=== PATIENT | male | born 1940 ===

== ENCOUNTER 2020-08-01 14:28 | Emergency (ER) | payer MEDICARE ==
--- NOTE | 2020-08-01 14:40 | CT ---
PROCEDURE INFORMATION: Exam: CT Head Without Contrast Exam date and time: 08/01/2020 2:34 PM Age: 79 years old Clinical indication: Altered mental status/memory loss; Confusion or disorientation; Additional info: CVA TECHNIQUE: Imaging protocol: Computed tomography of the head without contrast. Radiation optimization: All CT scans at this facility use at least one of these dose optimization techniques: automated exposure control; mA and/or kV adjustment per patient size (includes targeted exams where dose is matched to clinical indication); or iterative reconstruction. Other technique: STROKE PROTOCOL was implemented. COMPARISON: No relevant prior studies available. FINDINGS: Brain: Prominent sulci. Patchy hypodensity of the cerebral white matter which are nonspecific but likely secondary to microangiopathic changes. Cerebral ventricles: The ventricles are prominent secondary to diffuse volume loss/atrophy. Bones/joints: Unremarkable. No acute fracture. Paranasal sinuses: Visualized sinuses are unremarkable. No fluid levels. Mastoid air cells: Visualized mastoid air cells are well aerated. Soft tissues: Unremarkable. IMPRESSION: Chronic age related changes but no evidence of acute intracranial pathology. ASSESSMENT: ASPECTS ([place] Stroke Program Early CT Score) is 10.
--- NOTE | 2020-08-01 14:51 | EDM.PDOC ---
ED HPI GENERAL MEDICAL PROBLEM - General Stated Complaint: STROKE CODE Time Seen by Provider: 08/01/20 14:38 Source of Information: Reports: EMS History Limitations: Reports: Altered Mental Status - History of Present Illness INITIAL COMMENTS - FREE TEXT/NARRATIVE: This 79 yo male patient was brought to the ED by [facility] due to altered mentation. The patient currently lives in a basic care facility. The patient was sitting up doing a puzzle when the staff heard him call out. When the staff got to the patient, the patient was described as having "agonal breathing". EMS reports the patient has maintained his airway throughout the transport. The patient was squeezing the hands of the responders, but did not have a verbal response. The patient is currently a full code as reported by the [facility]. Upon arrival in the ED, the patient was taken directly to CT. When the patient returned to the ED from CT, the patient was maintaining his own airway. The patient would respond to verbal stimuli with grunts. The patient had no evidence of trauma. The patient has a history of hypertension, but on additional history. The patient's last known well time was about 1300 today. Onset: Today Duration: Constant Location: Reports: Other Quality: Reports: Other Severity: Severe Improves with: Reports: None Worsens with: Reports: None Context: Reports: Other Associated Symptoms: Reports: No Other Symptoms - Related Data Allergies Allergy/AdvReac Type Severity Reaction Status Date / Time No Known Allergies Allergy Verified 08/01/20 14:46 Home Meds: Home Meds Cholecalciferol (Vitamin D3) [Vitamin D3] 1,000 unit PO DAILY 08/01/20 [History] amLODIPine [Norvasc] 5 mg PO DAILY 08/01/20 [History] ED ROS GENERAL - Review of Systems Review Of Systems: Comprehensive ROS is negative, except as noted in HPI. ED EXAM, NEURO - Physical Exam Exam: See Below Exam Limited By: No Limitations General Appearance: Alert, WD/WN, Severe Distress Eye Exam: Bilateral Eye: PERRL, Other (Patient would attempt to open his eyes, but could not open his eyes) Ears: Normal External Exam, Normal Canal, Hearing Grossly Normal, Normal TMs Nose: Normal Inspection, Normal Mucosa, No Blood Throat/Mouth: Normal Inspection, Normal Lips, Normal Teeth, Normal Gums, Normal Oropharynx, No Airway Compromise Head Exam: Atraumatic, Normocephalic Neck: Normal Inspection, Supple, Non-Tender, Full Range of Motion Respiratory/Chest: No Respiratory Distress, Lungs Clear, Normal Breath Sounds, No Accessory Muscle Use, Chest Non-Tender Cardiovascular: Irregularly Irregular GI/Abdominal: Normal Bowel Sounds, Soft, Non-Tender, No Organomegaly, No Distention, No Abnormal Bruit, No Mass (Male) Exam: Deferred Rectal (Males) Exam: Deferred Neurological: Withdraws to Pain Back Exam: Normal Inspection, Full Range of Motion Extremities: Normal Inspection, Non-Tender, No Pedal Edema, Normal Capillary Refill Skin Exam: Warm, Dry, Intact, Normal Color, No Rash #1 Interpretation EKG Date: 08/01/20 Time: 14:43 Rhythm: A-Fib [place]: Normal P-Wave: Absent QRS: Normal ST-T: Normal QT: Normal Course - Vital Signs Last Recorded V/S: Last Vital Signs Temp 36.6 C 08/01/20 14:49 Pulse 85 08/01/20 14:49 Resp 20 08/01/20 14:49 BP 113/71 08/01/20 14:49 Pulse Ox 97 08/01/20 14:49 - Orders/Labs/Meds Orders: Active Orders 24 hr Category Date Time Status Blood Glucose Check, Bedside [RC] ONETIME Care 08/01/20 14:04 Active EKG Documentation Completion [RC] STAT Care 08/01/20 14:03 Active CULTURE BLOOD [BC] Stat Lab 08/01/20 14:41 Received Bender [CORONAVIRUS COVID-19 JERMAIN] [MOLEC] Urgent Lab 08/01/20 16:05 Ordered REFLEX LACTIC ACID YES OR NO [CHEM] Routine Lab 08/01/20 15:19 Received Sodium Chloride 0.9% [Normal Saline] 1,000 ml Med 08/01/20 16:22 Ordered IV .BOLUS Medication Orders Sodium Chloride (Normal Saline) 1,000 mls @ 500 mls/hr IV .BOLUS ONE Stop: 08/01/20 18:21 Labs: Laboratory Tests 08/01/20 08/01/20 08/01/20 Range/Units 14:31 14:41 14:41 WBC 9.0 (5.0-10.0) 10^3/uL RBC 4.78 (4.6-6.2) 10^6/uL Hgb 14.9 (14.0-18.0) g/dL Hct 42.9 (40.0-54.0) % MCV 89.7 (80-100) fL MCH 31.2 (27.0-34.0) pg MCHC 34.7 (33.0-35.0) g/dL Plt Count 208 (150-450) 10^3/uL Neut % (Auto) 61.9 (42.2-75.2) % Lymph % (Auto) 28.9 (20.5-50.1) % [place] % (Auto) 6.5 (2-8) % Eos % (Auto) 2.4 (1.0-3.0) % Baso % (Auto) 0.3 (0.0-1.0) % PT (9.0-12.0) SEC INR (0.9-1.2) Sodium 142 (136-145) mmol/L Potassium 5.4 H (3.5-5.1) mmol/L Chloride 103 (98-107) mmol/L Carbon Dioxide 23 (21-32) mmol/L Anion Gap 21.4 H (7-13) mEq/L BUN 28 H (7-18) mg/dL Creatinine 1.41 H (0.70-1.30) mg/dL Est Cr Clr Drug Dosing 43.16 mL/min Estimated GFR (MDRD) 48 BUN/Creatinine Ratio 19.9 (No establ ref range) Glucose 143 H (74-99) mg/dL POC Glucose 157 H (83-110) mg/dl Lactic Acid (0.4-2.0) mmol/L Calcium 8.8 (8.5-10.1) mg/dL Total Bilirubin 0.5 (0.2-1.0) mg/dL AST 47 H (15-37) U/L ALT 37 (16-63) U/L Alkaline Phosphatase 74 (46-116) U/L Troponin I 0.109 H* (0.000-0.056) ng/mL Total Protein 6.8 (6.4-8.2) g/dL Albumin 3.4 (3.4-5.0) g/dL Globulin 3.4 Albumin/Globulin Ratio 1.0 08/01/20 08/01/20 Range/Units 14:41 14:41 WBC (5.0-10.0) 10^3/uL RBC (4.6-6.2) 10^6/uL Hgb (14.0-18.0) g/dL Hct (40.0-54.0) % MCV (80-100) fL MCH (27.0-34.0) pg MCHC (33.0-35.0) g/dL Plt Count (150-450) 10^3/uL Neut % (Auto) (42.2-75.2) % Lymph % (Auto) (20.5-50.1) % [place] % (Auto) (2-8) % Eos % (Auto) (1.0-3.0) % Baso % (Auto) (0.0-1.0) % PT 10.6 (9.0-12.0) SEC INR 1.1 (0.9-1.2) Sodium (136-145) mmol/L Potassium (3.5-5.1) mmol/L Chloride (98-107) mmol/L Carbon Dioxide (21-32) mmol/L Anion Gap (7-13) mEq/L BUN (7-18) mg/dL Creatinine (0.70-1.30) mg/dL Est Cr Clr Drug Dosing mL/min Estimated GFR (MDRD) BUN/Creatinine Ratio (No establ ref range) Glucose (74-99) mg/dL POC Glucose (83-110) mg/dl Lactic Acid 5.6 H* (0.4-2.0) mmol/L Calcium (8.5-10.1) mg/dL Total Bilirubin (0.2-1.0) mg/dL AST (15-37) U/L ALT (16-63) U/L Alkaline Phosphatase (46-116) U/L Troponin I (0.000-0.056) ng/mL Total Protein (6.4-8.2) g/dL Albumin (3.4-5.0) g/dL Globulin Albumin/Globulin Ratio Meds: Medications Generic Name Dose Route Start Last Admin Trade Name Freq PRN Reason Stop Dose Admin Sodium Chloride 1,000 mls @ 500 mls/hr 08/01/20 16:22 Normal Saline IV 08/01/20 18:21 .BOLUS ONE Departure - Departure Time of Disposition: 16:26 Disposition: DC/Tfer to Acute Hospital 02 Condition: Fair Clinical Impression: Elevated troponin I level, New onset a-fib - Discharge Information *PRESCRIPTION DRUG MONITORING PROGRAM REVIEWED*: Not Applicable *COPY OF PRESCRIPTION DRUG MONITORING REPORT IN PATIENT JESSICA: Not Applicable Forms: Interfacility Transfer EMTALA Care Plan Goals: Discussed the patient's history, examination, CT, Lab and EKG results with Dr. Rivas. Dr. Rivas accepted the patient for continued evaluation and further management as an inpatient at [facility] in [place]. The patient will be transported by [facility]. Sepsis Event Note (ED) - Focused Exam Vital Signs: Vital Signs Temp Pulse Resp BP Pulse Ox 08/01/20 14:49 36.6 C 85 20 113/71 97 - My Orders Last 24 Hours: My Active Orders 08/01/20 14:03 EKG Documentation Completion [RC] STAT 08/01/20 14:04 Blood Glucose Check, Bedside [RC] ONETIME 08/01/20 14:41 CULTURE BLOOD [BC] Stat 08/01/20 15:19 REFLEX LACTIC ACID YES OR NO [CHEM] Routine 08/01/20 16:05 Bender [CORONAVIRUS COVID-19 JERMAIN] [MOLEC] Urgent 08/01/20 16:22 Sodium Chloride 0.9% [Normal Saline] 1,000 ml IV .BOLUS - Assessment/Plan Last 24 Hours: My Active Orders 08/01/20 14:03 EKG Documentation Completion [RC] STAT 08/01/20 14:04 Blood Glucose Check, Bedside [RC] ONETIME 08/01/20 14:41 CULTURE BLOOD [BC] Stat 08/01/20 15:19 REFLEX LACTIC ACID YES OR NO [CHEM] Routine 08/01/20 16:05 Bender [CORONAVIRUS COVID-19 JERMAIN] [MOLEC] Urgent 08/01/20 16:22 Sodium Chloride 0.9% [Normal Saline] 1,000 ml IV .BOLUS
[2020-08-01 15:28] LABS: ANION GAP 21.4 mEq/L (7-13)
[2020-08-01] MEDS ORDERED: Sodium Chloride 0.9% 1,000 ML IV ONE (16:22)
== END 2020-08-01 16:57 ==
LOC: DL.ED 14:28
DX: I48.91 Unspecified atrial fibrillation (principal); R77.8 Other specified abnormalities of plasma proteins; I10 Essential (primary) hypertension
CPT/HCPCS: 36415; 70450; 80053; 81001; 82962; 83605; 84484; 85025; 85610; 87040; 93005; 93010; 99284; 99285; J7030; U0002

== ENCOUNTER 2021-01-04 09:45 | Observation (INO) | payer MEDICARE ==
[~2021-01-04 09:45] MED LIST: Sodium Chloride 0.9% 500 ML IV SCH; levETIRAcetam in NaCl (iso-os) 1,500 MG in Premix Bag 1 BAG IV ONE
--- NOTE | 2021-01-04 10:13 | CT ---
PROCEDURE INFORMATION: Exam: CT Head Without Contrast Exam date and time: 01/04/2021 9:50 AM Age: 80 years old Clinical indication: Other: Suspected seizure, fall w/head injury TECHNIQUE: Imaging protocol: Computed tomography of the head without contrast. Radiation optimization: All CT scans at this facility use at least one of these dose optimization techniques: automated exposure control; mA and/or kV adjustment per patient size (includes targeted exams where dose is matched to clinical indication); or iterative reconstruction. COMPARISON: CT Head wo Cont 08/01/2020 2:34 PM FINDINGS: Brain: There is no acute intracranial hemorrhage. There is lucency in the cerebral white matter, likely microvascular disease although non-specific. [place] white differentiation is intact. There are no extra-axial fluid collections. No evidence of mass. There is no mass effect or midline shift. Cerebral ventricles: The ventricles and sulci are enlarged, consistent with volume loss / atrophy. No hydrocephalus. Paranasal sinuses: Visualized sinuses are unremarkable. No fluid levels. Mastoid air cells: No significant mastoid effusion. Vasculature: There is vascular calcification. Bones/joints: No acute fracture. Soft tissues: Unremarkable as visualized. 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 IMPRESSION: 1. No evidence of acute intracranial abnormality. No evidence of acute infarction, hemorrhage, or mass. 2. Atrophy and microvascular disease.
--- NOTE | 2021-01-04 10:17 | CT ---
PROCEDURE INFORMATION: Exam: CT Cervical Spine Without Contrast Exam date and time: 01/04/2021 9:50 AM Age: 80 years old Clinical indication: Other: Suspected seizure, fall w/head injury TECHNIQUE: Imaging protocol: Computed tomography images of the cervical spine without contrast. Radiation optimization: All CT scans at this facility use at least one of these dose optimization techniques: automated exposure control; mA and/or kV adjustment per patient size (includes targeted exams where dose is matched to clinical indication); or iterative reconstruction. COMPARISON: CT Head wo Cont 08/01/2020 2:34 PM FINDINGS: Bones/joints: Loss of cervical lordosis may be positional or associated with muscular spasm. Vertebral body heights are maintained. There is no fracture or dislocation. Facet joints appear well aligned. There is mild grade 1 anterolisthesis at C3-C4, C4-C5, C6-C7, and C7-T1. Bones are demineralized. Discs/Spinal canal/Neural foramina: There are degenerative changes with neural foraminal narrowing. Spinal canal appears adequate diameter. Prevertebral Space: Prevertebral soft tissues appear normal. Lungs: Mild scarring in pulmonary apices. Soft tissues: Unremarkable. IMPRESSION: 1. Loss of cervical lordosis. No evidence of fracture or dislocation. 2. Other findings as described.
--- NOTE | 2021-01-04 10:30 | EDM.PDOC ---
"ED HPI GENERAL MEDICAL PROBLEM - General Source of Information: Reports: Patient, EMS History Limitations: Reports: Altered Mental Status - History of Present Illness Onset: Today, Sudden Duration: Minutes: Location: Reports: Generalized <Song Narvaez - Last Filed: 01/04/21 13:49> - General Source of Information: Reports: Patient, EMS, Halfway Records, Old Records, RN, RN Notes Reviewed History Limitations: Reports: Altered Mental Status <Jose Angel Branham - Last Filed: 01/04/21 13:53> - General Chief Complaint: Neurological Problem Stated Complaint: AMBULANCE Time Seen by Provider: 01/04/21 09:50 - History of Present Illness INITIAL COMMENTS - FREE TEXT/NARRATIVE: 80 y/o M resident of a [facility]pc was found face down on the floor next to his bed seizing this morning. Staff states they check on pt at about 730 this am and invited him to breakfast, when pt didn't show around 8 am staff went back to check on him and found him seizing. Staff reports the seizure stopped a few seconds after they arrived. They rolled pt on his back and he had labored breathing and was blue around the lips. EMS was then called and brought pt to ER. Pt hx of seizures and has been out of his Keppra for three days while [facility]. Pt was postictal after seizure and has remained confused during transport per EMS. (Song Narvaez) - Related Data Allergies Allergy/AdvReac Type Severity Reaction Status Date / Time No Known Allergies Allergy Verified 08/01/20 14:46 Home Meds: Home Meds Cholecalciferol (Vitamin D3) [Vitamin D3] 1,000 unit PO DAILY 08/01/20 [History] amLODIPine [Norvasc] 10 mg PO DAILY 08/01/20 [History] Latanoprost [Xalatan 0.005% Ophth Soln] 1 drop .ROUTE ASDIRECTED 01/04/21 [History] Tamsulosin [Tamsulosin 24 Hr] 0.4 mg PO ASDIRECTED 01/04/21 [History] levETIRAcetam [Keppra] 500 mg PO BID 01/04/21 [History] Past Medical History HEENT History: Reports: None Cardiovascular History: Reports: Hypertension Respiratory History: Reports: None Gastrointestinal History: Reports: None Genitourinary History: Reports: None Musculoskeletal History: Reports: None Neurological History: Reports: None Psychiatric History: Reports: None Endocrine/Metabolic History: Reports: None Hematologic History: Reports: None Immunologic History: Reports: None Oncologic (Cancer) History: Reports: None Dermatologic History: Reports: None - Infectious Disease History Infectious Disease History: Reports: None - Past Surgical History Head Surgeries/Procedures: Reports: None <Sogn Narvaez - Last Filed: 01/04/21 13:49> Cardiovascular History: Reports: Afib, Hypertension Neurological History: Reports: Seizure <YonasJose Angel Merritt - Last Filed: 01/04/21 13:53> Social & Family History - Family History Family Medical History: Unobtainable - Caffeine Use Caffeine Use: Reports: None <Song Narvaez - Last Filed: 01/04/21 13:49> - Family History Family Medical History: Unobtainable - Living Situation & Occupation Living situation: Reports: Extended Care Facility Occupation: Retired <Jose Angel Branham - Last Filed: 01/04/21 13:53> ED ROS GENERAL - Review of Systems Review Of Systems: Unable To Obtain Reason Not Obtained: Pt confused after seizure <[place] - Last Filed: 01/04/21 13:49> - Review of Systems Review Of Systems: Comprehensive ROS is negative, except as noted in HPI. <Jose Angel Branham - Last Filed: 01/04/21 13:53> - Physical Exam Exam: See Below Exam Limited By: No Limitations General Appearance: Lethargic Eye Exam: Bilateral Eye: PERRL (Perrl with a conjugate gaze but sluggish) Throat/Mouth: Normal Oropharynx, Normal Voice, No Airway Compromise, Other (contusion to the anterior R tongue) Head Exam: Atraumatic, Normocephalic Neck: Supple Respiratory/Chest: No Respiratory Distress, Lungs Clear, Normal Breath Sounds, No Accessory Muscle Use, Chest Non-Tender Cardiovascular: Irregularly Irregular GI/Abdominal: Soft, Non-Tender (Male) Exam: Deferred Rectal (Males) Exam: Deferred Neuro Exam (Abbreviated): Confused Extremities: Normal Inspection Skin Exam: Warm, Dry, Intact <Song Narvaez Yeny Last Filed: 01/04/21 13:49> - Physical Exam Exam: See Below <Jose Angel Branham - Last Filed: 01/04/21 13:53> #1 Interpretation EKG Date: 01/04/21 Time: 10:09 Rhythm: A-Fib Rate (Beats/Min): 110 [place]: Normal P-Wave: Absent QRS: Normal ST-T: Normal QT: Normal Comparison: No Change <Jose Angel Branham - Last Filed: 01/04/21 13:53> Course <Jose Angel Branham - Last Filed: 01/04/21 13:53> - Vital Signs Last Recorded V/S: Last Vital Signs Temp 97.7 F 01/04/21 09:51 Pulse 102 H 01/04/21 09:51 Resp 19 01/04/21 09:51 BP 99/84 01/04/21 09:51 Pulse Ox 90 L 01/04/21 09:51 - Orders/Labs/Meds Orders: Active Orders 24 hr Category Date Time Status Blood Glucose Check, Bedside [RC] ONETIME Care 01/04/21 09:41 Active LEVETIRACETAM, S [REF] Routine Lab 01/04/21 10:10 Received Sodium Chloride 0.9% [Normal Saline] 500 ml Med 01/04/21 09:45 Active IV .BOLUS Medication Orders Sodium Chloride (Normal Saline) 500 mls @ 999 mls/hr IV .BOLUS RENETTA Last Admin: 01/04/21 10:19 Dose: 999 mls/hr Documented by: YARED Labs: Laboratory Tests 01/04/21 01/04/21 01/04/21 Range/Units 09:46 10:10 10:10 WBC 16.5 H (5.0-10.0) 10^3/uL RBC 5.07 (4.6-6.2) 10^6/uL Hgb 15.1 (14.0-18.0) g/dL Hct 43.6 (40.0-54.0) % MCV 86.0 D (80-100) fL MCH 29.8 (27.0-34.0) pg MCHC 34.6 (33.0-35.0) g/dL Plt Count 214 (150-450) 10^3/uL Neut % (Auto) 89.1 H (42.2-75.2) % Lymph % (Auto) 5.6 L (20.5-50.1) % [place] % (Auto) 5.1 (2-8) % Eos % (Auto) 0.1 L (1.0-3.0) % Baso % (Auto) 0.1 (0.0-1.0) % Sodium 140 (136-145) mmol/L Potassium 4.3 (3.5-5.1) mmol/L Chloride 104 (98-107) mmol/L Carbon Dioxide 19 L (21-32) mmol/L Anion Gap 21.3 H (7-13) mEq/L BUN 21 H (7-18) mg/dL Creatinine 1.80 H (0.70-1.30) mg/dL Est Cr Clr Drug Dosing 36.55 mL/min Estimated GFR (MDRD) 36 BUN/Creatinine Ratio 11.7 (No establ ref range) Glucose 153 H (70-99) mg/dL POC Glucose 158 H (70-99) mg/dL Calcium 8.6 (8.5-10.1) mg/dL Total Bilirubin 0.4 (0.2-1.0) mg/dL AST 32 (15-37) U/L ALT 47 (16-63) U/L Alkaline Phosphatase 86 (46-116) U/L Lactate Dehydrogenase 215 (85-227) U/L Creatine Kinase 567 H (39-308) U/L Troponin I High Sens 9 (<=76) pg/mL Total Protein 6.6 (6.4-8.2) g/dL Albumin 3.4 (3.4-5.0) g/dL Globulin 3.2 Albumin/Globulin Ratio 1.1 Urine Color (YELLOW) Urine Appearance (CLEAR) Urine pH (5.0-9.0) Ur Specific [place] (1.005-1.030) Urine Protein (NEGATIVE) Urine Glucose (UA) (NEGATIVE) Urine Ketones (NEGATIVE) Urine Occult Blood (NEGATIVE) Urine Nitrite (NEGATIVE) Urine Bilirubin (NEGATIVE) Urine Urobilinogen (0.2-1.0) mg/dL Ur Leukocyte Esterase (NEGATIVE) Urine RBC (0-5) /HPF Urine WBC (0-5/HPF) /HPF Ur Epithelial Cells (NOT SEEN) /HPF Amorphous Sediment (NOT SEEN) /HPF Urine Bacteria (0-FEW/HPF) /HPF Urine Opiates Screen (NEGATIVE) Ur Oxycodone Screen (NEGATIVE) Urine Methadone Screen (NEGATIVE) Ur Barbiturates Screen (NEGATIVE) U Tricyclic Antidepress (NEGATIVE) Ur Phencyclidine Scrn (NEGATIVE) Ur Amphetamine Screen (NEGATIVE) U Methamphetamines Scrn (NEGATIVE) Urine MDMA Screen (NEGATIVE) U Benzodiazepines Scrn (NEGATIVE) Urine Cocaine Screen (NEGATIVE) U Marijuana (THC) Screen (NEGATIVE) Ethyl Alcohol < 3 (0) mg/dL SARS CoV-2 RNA Rapid JERMAIN (NEGATIVE) 01/04/21 01/04/21 01/04/21 Range/Units 11:57 11:59 15:59 WBC (5.0-10.0) 10^3/uL RBC (4.6-6.2) 10^6/uL Hgb (14.0-18.0) g/dL Hct (40.0-54.0) % MCV (80-100) fL MCH (27.0-34.0) pg MCHC (33.0-35.0) g/dL Plt Count (150-450) 10^3/uL Neut % (Auto) (42.2-75.2) % Lymph % (Auto) (20.5-50.1) % [place] % (Auto) (2-8) % Eos % (Auto) (1.0-3.0) % Baso % (Auto) (0.0-1.0) % Sodium (136-145) mmol/L Potassium (3.5-5.1) mmol/L Chloride (98-107) mmol/L Carbon Dioxide (21-32) mmol/L Anion Gap (7-13) mEq/L BUN (7-18) mg/dL Creatinine (0.70-1.30) mg/dL Est Cr Clr Drug Dosing mL/min Estimated GFR (MDRD) BUN/Creatinine Ratio (No establ ref range) Glucose (70-99) mg/dL POC Glucose (70-99) mg/dL Calcium (8.5-10.1) mg/dL Total Bilirubin (0.2-1.0) mg/dL AST (15-37) U/L ALT (16-63) U/L Alkaline Phosphatase (46-116) U/L Lactate Dehydrogenase (85-227) U/L Creatine Kinase (39-308) U/L Troponin I High Sens (<=76) pg/mL Total Protein (6.4-8.2) g/dL Albumin (3.4-5.0) g/dL Globulin Albumin/Globulin Ratio Urine Color Dark yellow (YELLOW) Urine Appearance Clear (CLEAR) Urine pH 5.5 (5.0-9.0) Ur Specific [place] >= 1.030 (1.005-1.030) Urine Protein 100 H (NEGATIVE) Urine Glucose (UA) Negative (NEGATIVE) Urine Ketones Negative (NEGATIVE) Urine Occult Blood Large H (NEGATIVE) Urine Nitrite Negative (NEGATIVE) Urine Bilirubin Negative (NEGATIVE) Urine Urobilinogen 0.2 (0.2-1.0) mg/dL Ur Leukocyte Esterase Negative (NEGATIVE) Urine RBC 10-20 H (0-5) /HPF Urine WBC Not seen (0-5/HPF) /HPF Ur Epithelial Cells Rare (NOT SEEN) /HPF Amorphous Sediment Few (NOT SEEN) /HPF Urine Bacteria Rare (0-FEW/HPF) /HPF Urine Opiates Screen Negative (NEGATIVE) Ur Oxycodone Screen Negative (NEGATIVE) Urine Methadone Screen Negative (NEGATIVE) Ur Barbiturates Screen Negative (NEGATIVE) U Tricyclic Antidepress Negative (NEGATIVE) Ur Phencyclidine Scrn Negative (NEGATIVE) Ur Amphetamine Screen Negative (NEGATIVE) U Methamphetamines Scrn Negative (NEGATIVE) Urine MDMA Screen Negative (NEGATIVE) U Benzodiazepines Scrn Negative (NEGATIVE) Urine Cocaine Screen Negative (NEGATIVE) U Marijuana (THC) Screen Negative (NEGATIVE) Ethyl Alcohol (0) mg/dL SARS CoV-2 RNA Rapid JERMAIN Negative (NEGATIVE) Meds: Medications Generic Name Dose Route Start Last Admin Trade Name Freq PRN Reason Stop Dose Admin Sodium Chloride 500 mls @ 999 mls/hr 01/04/21 09:45 01/04/21 10:19 Normal Saline IV 999 mls/hr .BOLUS RENETTA Administration Discontinued Medications Generic Name Dose Route Start Last Admin Trade Name Freq PRN Reason Stop Dose Admin Levetiracetam 1,500 mg/ Premix 300 mls @ 1,200 mls/hr 01/04/21 09:45 01/04/21 10:18 IV 01/04/21 09:46 1,200 mls/hr ONETIME ONE Administration - Radiology Interpretation Free Text/Narrative:: [facility] Final Radiology Report Call: [phone] assistance Online chat: [email or web address] Name: IVONNE DAVIS Age: 80Years M Date: 01/04/2021 SSN: -- : [id number] Study: CT HEAD WO CONT Requesting Physician: JOSE ANGEL BRANHAM Images: [id number] Addl Studies: Provided Clinical History: Suspected seizure, fall w/head injury Contrast: Without Contrast Medium: Contrast Amount: Contrast Method: Page 1 of 2 PROCEDURE INFORMATION: Exam: CT Head Without Contrast Exam date and time: 01/04/2021 9:50 AM Age: 80 years old Clinical indication: Other: Suspected seizure, fall w/head injury TECHNIQUE: Imaging protocol: Computed tomography of the head without contrast. Radiation optimization: All CT scans at this facility use at least one of these dose optimization techniques: automated exposure control; mA and/or kV adjustment per patient size (includes targeted exams where dose is matched to clinical indication); or iterative reconstruction. COMPARISON: CT Head wo Cont 08/01/2020 2:34 PM FINDINGS: Brain: There is no acute intracranial hemorrhage. There is lucency in the cerebral white matter, likely microvascular disease although non-specific. Dom[place] white differentiation is intact. There are no extraaxial fluid collections. No evidence of mass. There is no mass effect or midline shift. Cerebral ventricles: The ventricles and sulci are enlarged, consistent with vol ume loss / atrophy. No hydrocephalus. Paranasal sinuses: Visualized sinuses are unremarkable. No fluid levels. Mastoid air cells: No significant mastoid effusion. Vasculature: There is vascular calcification. Bones/joints: No acute fracture. Soft tissues: Unremarkable as visualized. 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 IMPRESSION: IVONNE DAVIS | Final Radiology Report CONFIDENTIALITY STATEMENT This report is intended only for use by the referring physician, and only in accordance with law. If you received this in error, call [phone]. Page 2 of 2 1. No evidence of acute intracranial abnormality. No evidence of acute infarction, hemorrhage, or mass. 2. Atrophy and microvascular disease. Thank you for allowing us to participate in the care of your patient. Dictated and Authenticated by: Fina Snyder MD 01/04/2021 10:13 AM Central Time ([place] & [place]) [facility] [place] [facility] Final Radiology Report with Addendum Call: [phone] assistance Online chat: [email or web address] Name: IVONNE DAVIS Age: 80Years M Date: 01/04/2021 SSN: -- : [id number] Study: CT CERVICAL SPINE WO CONT Requesting Physician: JOSE ANGEL BRANHAM Images: [id number] Addl Studies: Provided Clinical History: Suspected seizure, fall w/head injury Contrast: Without Contrast Medium: Contrast Amount: Contrast Method: Page 1 of 2 Addendum created by Fina Snyder MD on 01/04/2021 10:18 AM Central Time ([place] & [place]): There is mild superior concavity and anterior wedging of T3 greater than T7 without acute fracture line and these appear chronic. Initial Report created on 01/04/2021 10:17 AM Central Time ([place] & [place]): PROCEDURE INFORMATION: Exam: CT Cervical Spine Without Contrast Exam date and time: 01/04/2021 9:50 AM Age: 80 years old Clinical indication: Other: Suspected seizure, fall w/head injury TECHNIQUE: Imaging protocol: Computed tomography images of the cervical spine without contrast. Radiation optimization: All CT scans at this facility use at least one of these dose optimization techniques: automated exposure control; mA and/or kV adjustment per patient size (includes targeted exams where dose is matched to clinical indication); or iterative reconstruction. COMPARISON: CT Head wo Cont 08/01/2020 2:34 PM FINDINGS: Bones/joints: Loss of cervical lordosis may be positional or associated with muscular spasm. Vertebral body heights are maintained. There is no fracture or dislocation. Facet joints appear well aligned. There is mild grade 1 anterolisthesis at C3-C4, C4-C5, C6-C7, and C7- T1. Bones are demineralized. Discs/Spinal canal/Neural foramina: There are degenerative changes with neural foraminal narrowing. Spinal canal appears adequate diameter. Prevertebral Space: Prevertebral soft tissues appear normal. Lungs: Mild scarring in pulmonary apices. IVONNE DAVIS | Final Radiology Report CONFIDENTIALITY STATEMENT This report is intended only for use by the referring physician, and only in accordance with law. If you received this in error, call [phone]. Page 2 of 2 Soft tissues: Unremarkable. IMPRESSION: 1. Loss of cervical lordosis. No evidence of fracture or dislocation. 2. Other findings as described. Thank you for allowing us to participate in the care of your patient. Dictated and Authenticated by: Fina Snyder MD 01/04/2021 10:17 AM Central Time ([place] & [place]) (Jose Angel Branham) - Re-Assessments/Exams Free Text/Narrative Re-Assessment/Exam: 01/04/21 13:51 Pt has not completely returned to baseline following prolonged postictal phase, with no other source of alt. mental status identified. Plan to admit pt to observation to Dr. Ball. (Jose Angel Branham) Departure - Departure Time of Disposition: 13:48 (admitted to Dr. Ball) Condition: Fair <Song Narvaez - Last Filed: 01/04/21 13:49> - Discharge Information *PRESCRIPTION DRUG MONITORING PROGRAM REVIEWED*: Not Applicable *COPY OF PRESCRIPTION DRUG MONITORING REPORT IN PATIENT JESSICA: Not Applicable <Jose Angel Branham - Last Filed: 01/04/21 13:53> - Departure Disposition: Refer to Observation Clinical Impression: Seizure Altered mental status Qualifiers: Altered mental status type: disorientation Qualified Code(s): R41.0 - Disorientation, unspecified - Discharge Information Forms: ED Department Discharge Sepsis Event Note (ED) - Focused Exam Vital Signs: Vital Signs Temp Pulse Resp BP Pulse Ox 01/04/21 09:51 97.7 F 102 H 19 99/84 90 L - My Orders Last 24 Hours: My Active Orders 01/04/21 09:41 Blood Glucose Check, Bedside [RC] ONETIME 01/04/21 09:45 Sodium Chloride 0.9% [Normal Saline] 500 ml IV .BOLUS 01/04/21 10:10 LEVETIRACETAM, S [REF] Routine - Assessment/Plan Last 24 Hours: My Active Orders 01/04/21 09:41 Blood Glucose Check, Bedside [RC] ONETIME 01/04/21 09:45 Sodium Chloride 0.9% [Normal Saline] 500 ml IV .BOLUS 01/04/21 10:10 LEVETIRACETAM, S [REF] Routine"
[2021-01-04 10:36] LABS: ANION GAP 21.3 mEq/L (7-13); CHLORIDE,CL 104 mmol/L (98-107); SODIUM,NA 140 mmol/L (136-145)
[2021-01-04 12:37] LABS: AMPHETAMINES,URINE NEGATIVE (NEGATIVE); BARBITURATES,URINE NEGATIVE (NEGATIVE); BENZODIAZEPINE,URINE NEGATIVE (NEGATIVE); MDMA (ECSTASY), URINE NEGATIVE (NEGATIVE); METHADONE,URINE NEGATIVE (NEGATIVE); METHAMPHETAMINES,URINE NEGATIVE (NEGATIVE); OPIATES,URINE NEGATIVE (NEGATIVE); OXYCODONE,URINE NEGATIVE (NEGATIVE); PHENCYCLIDINE,URINE NEGATIVE (NEGATIVE); TCA,URINE NEGATIVE (NEGATIVE)
[2021-01-04] MEDS ORDERED: Temazepam 15 MG Cap PO PRN (16:04)
[2021-01-04] MEDS ORDERED: Acetaminophen 325 MG Tab PO PRN (16:04)
[2021-01-04] MEDS ORDERED: Ondansetron 4 MG Tab.DIS PO PRN (16:04)
[2021-01-04] MEDS ORDERED: Sodium Chloride 0.9% 10 ML Syringe FLUSH PRN (16:04)
[2021-01-04] MEDS ORDERED: Docusate Sodium 100 MG Cap PO PRN (16:04)
--- NOTE | 2021-01-04 16:07 | PCM.HP ---
H&P History of Present Illness - General Date of Service: 01/04/21 Admit Problem/Dx: Admission Diagnosis/Problem Admission Diagnosis/Problem Seizure Source of Information: Patient History Limitations: Reports: Altered Mental Status - History of Present Illness Initial Comments - Free Text/Narative: pt can not recall how he ended up in the hospital per er report: 80 y/o M resident of a correction was found face down on the floor next to his bed seizing this morning. Staff states they check on pt at about 730 this am and invited him to breakfast, when pt didn't show around 8 am staff went back to check on him and found him seizing. Staff reports the seizure stopped a few seconds after they arrived. They rolled pt on his back and he had labored breathing and was blue around the lips. EMS was then called and brought pt to ER. Pt hx of seizures and has been out of his Keppra for three days while [facility]. Pt was postictal after seizure and has remained confused during transport per EMS. the patient denies headache, no associated shortness of breath. He is alert and knows where he is and where he lives that but cannot recall how he ended up in the hospital. - Related Data Allergies/Adverse Reactions: Allergies Allergy/AdvReac Type Severity Reaction Status Date / Time No Known Allergies Allergy Verified 01/04/21 15:44 Home Medications: Home Meds Cholecalciferol (Vitamin D3) [Vitamin D3] 1,000 unit PO DAILY 08/01/20 [History] amLODIPine [Norvasc] 10 mg PO DAILY 08/01/20 [History] Fluticasone Propionate [Flonase] 1 spray NASBOTH DAILY 01/04/21 [History] Latanoprost [Xalatan 0.005% Ophth Soln] 1 drop .ROUTE ASDIRECTED 01/04/21 [History] Tamsulosin [Tamsulosin 24 Hr] 0.4 mg PO ASDIRECTED 01/04/21 [History] levETIRAcetam [Keppra] 500 mg PO BID 01/04/21 [History] Past Medical History HEENT History: Reports: None Cardiovascular History: Reports: Afib, Hypertension Respiratory History: Reports: None Gastrointestinal History: Reports: None Genitourinary History: Reports: None Musculoskeletal History: Reports: None Neurological History: Reports: Seizure Psychiatric History: Reports: None Endocrine/Metabolic History: Reports: None Hematologic History: Reports: None Immunologic History: Reports: None Oncologic (Cancer) History: Reports: None Dermatologic History: Reports: None - Infectious Disease History Infectious Disease History: Reports: None - Past Surgical History Head Surgeries/Procedures: Reports: None Social & Family History - Family History Family Medical History: Unobtainable - Tobacco Use Tobacco Use Status *Q: Unknown Ever Used Tobacco - Caffeine Use Caffeine Use: Reports: Coffee - Living Situation & Occupation Living situation: Reports: Extended Care Facility Occupation: Retired H&P Review of Systems - Review of Systems: Review Of Systems: See Below General: Denies: Fever Pulmonary: Denies: Shortness of Breath Cardiovascular: Denies: Chest Pain, Edema Psychiatric: Reports: Confusion (earlier - improving ) Exam - Exam Exam: See Below - Vital Signs Vital Signs: Last Vital Signs Temp 96 F L 01/04/21 14:45 Pulse 108 H 01/04/21 14:50 Resp 22 H 01/04/21 14:50 BP 119/79 01/04/21 14:50 Pulse Ox 96 01/04/21 14:50 Weight: 177 lb - Exam General: Alert, Oriented Neck: Supple Lungs: Clear to Auscultation, Normal Respiratory Effort Cardiovascular: Irregular Rhythm GI/Abdominal Exam: Normal Bowel Sounds, Soft, Non-Tender Extremities: Pedal Edema (trace edema) - Patient Data Lab Results Last 24 hrs: Laboratory Results - last 24 hr 01/04/21 01/04/21 01/04/21 Range/Units 09:46 10:10 10:10 WBC 16.5 H (5.0-10.0) 10^3/uL RBC 5.07 (4.6-6.2) 10^6/uL Hgb 15.1 (14.0-18.0) g/dL Hct 43.6 (40.0-54.0) % MCV 86.0 D (80-100) fL MCH 29.8 (27.0-34.0) pg MCHC 34.6 (33.0-35.0) g/dL Plt Count 214 (150-450) 10^3/uL Neut % (Auto) 89.1 H (42.2-75.2) % Lymph % (Auto) 5.6 L (20.5-50.1) % [place] % (Auto) 5.1 (2-8) % Eos % (Auto) 0.1 L (1.0-3.0) % Baso % (Auto) 0.1 (0.0-1.0) % Sodium 140 (136-145) mmol/L Potassium 4.3 (3.5-5.1) mmol/L Chloride 104 (98-107) mmol/L Carbon Dioxide 19 L (21-32) mmol/L Anion Gap 21.3 H (7-13) mEq/L BUN 21 H (7-18) mg/dL Creatinine 1.80 H (0.70-1.30) mg/dL Est Cr Clr Drug Dosing 36.55 mL/min Estimated GFR (MDRD) 36 BUN/Creatinine Ratio 11.7 (No establ ref range) Glucose 153 H (70-99) mg/dL POC Glucose 158 H (70-99) mg/dL Calcium 8.6 (8.5-10.1) mg/dL Total Bilirubin 0.4 (0.2-1.0) mg/dL AST 32 (15-37) U/L ALT 47 (16-63) U/L Alkaline Phosphatase 86 (46-116) U/L Lactate Dehydrogenase 215 (85-227) U/L Creatine Kinase 567 H (39-308) U/L Troponin I High Sens 9 (<=76) pg/mL Total Protein 6.6 (6.4-8.2) g/dL Albumin 3.4 (3.4-5.0) g/dL Globulin 3.2 Albumin/Globulin Ratio 1.1 Urine Color (YELLOW) Urine Appearance (CLEAR) Urine pH (5.0-9.0) Ur Specific [place] (1.005-1.030) Urine Protein (NEGATIVE) Urine Glucose (UA) (NEGATIVE) Urine Ketones (NEGATIVE) Urine Occult Blood (NEGATIVE) Urine Nitrite (NEGATIVE) Urine Bilirubin (NEGATIVE) Urine Urobilinogen (0.2-1.0) mg/dL Ur Leukocyte Esterase (NEGATIVE) Urine RBC (0-5) /HPF Urine WBC (0-5/HPF) /HPF Ur Epithelial Cells (NOT SEEN) /HPF Amorphous Sediment (NOT SEEN) /HPF Urine Bacteria (0-FEW/HPF) /HPF Urine Opiates Screen (NEGATIVE) Ur Oxycodone Screen (NEGATIVE) Urine Methadone Screen (NEGATIVE) Ur Barbiturates Screen (NEGATIVE) U Tricyclic Antidepress (NEGATIVE) Ur Phencyclidine Scrn (NEGATIVE) Ur Amphetamine Screen (NEGATIVE) U Methamphetamines Scrn (NEGATIVE) Urine MDMA Screen (NEGATIVE) U Benzodiazepines Scrn (NEGATIVE) Urine Cocaine Screen (NEGATIVE) U Marijuana (THC) Screen (NEGATIVE) Ethyl Alcohol < 3 (0) mg/dL SARS CoV-2 RNA Rapid JERMAIN (NEGATIVE) 01/04/21 01/04/21 01/04/21 Range/Units 11:57 11:59 15:59 WBC (5.0-10.0) 10^3/uL RBC (4.6-6.2) 10^6/uL Hgb (14.0-18.0) g/dL Hct (40.0-54.0) % MCV (80-100) fL MCH (27.0-34.0) pg MCHC (33.0-35.0) g/dL Plt Count (150-450) 10^3/uL Neut % (Auto) (42.2-75.2) % Lymph % (Auto) (20.5-50.1) % [place] % (Auto) (2-8) % Eos % (Auto) (1.0-3.0) % Baso % (Auto) (0.0-1.0) % Sodium (136-145) mmol/L Potassium (3.5-5.1) mmol/L Chloride (98-107) mmol/L Carbon Dioxide (21-32) mmol/L Anion Gap (7-13) mEq/L BUN (7-18) mg/dL Creatinine (0.70-1.30) mg/dL Est Cr Clr Drug Dosing mL/min Estimated GFR (MDRD) BUN/Creatinine Ratio (No establ ref range) Glucose (70-99) mg/dL POC Glucose (70-99) mg/dL Calcium (8.5-10.1) mg/dL Total Bilirubin (0.2-1.0) mg/dL AST (15-37) U/L ALT (16-63) U/L Alkaline Phosphatase (46-116) U/L Lactate Dehydrogenase (85-227) U/L Creatine Kinase (39-308) U/L Troponin I High Sens (<=76) pg/mL Total Protein (6.4-8.2) g/dL Albumin (3.4-5.0) g/dL Globulin Albumin/Globulin Ratio Urine Color Dark yellow (YELLOW) Urine Appearance Clear (CLEAR) Urine pH 5.5 (5.0-9.0) Ur Specific [place] >= 1.030 (1.005-1.030) Urine Protein 100 H (NEGATIVE) Urine Glucose (UA) Negative (NEGATIVE) Urine Ketones Negative (NEGATIVE) Urine Occult Blood Large H (NEGATIVE) Urine Nitrite Negative (NEGATIVE) Urine Bilirubin Negative (NEGATIVE) Urine Urobilinogen 0.2 (0.2-1.0) mg/dL Ur Leukocyte Esterase Negative (NEGATIVE) Urine RBC 10-20 H (0-5) /HPF Urine WBC Not seen (0-5/HPF) /HPF Ur Epithelial Cells Rare (NOT SEEN) /HPF Amorphous Sediment Few (NOT SEEN) /HPF Urine Bacteria Rare (0-FEW/HPF) /HPF Urine Opiates Screen Negative (NEGATIVE) Ur Oxycodone Screen Negative (NEGATIVE) Urine Methadone Screen Negative (NEGATIVE) Ur Barbiturates Screen Negative (NEGATIVE) U Tricyclic Antidepress Negative (NEGATIVE) Ur Phencyclidine Scrn Negative (NEGATIVE) Ur Amphetamine Screen Negative (NEGATIVE) U Methamphetamines Scrn Negative (NEGATIVE) Urine MDMA Screen Negative (NEGATIVE) U Benzodiazepines Scrn Negative (NEGATIVE) Urine Cocaine Screen Negative (NEGATIVE) U Marijuana (THC) Screen Negative (NEGATIVE) Ethyl Alcohol (0) mg/dL SARS CoV-2 RNA Rapid JERMAIN Negative (NEGATIVE) Result Diagrams: 01/04/21 10:10 01/04/21 10:10 - Problem List (1) Afib SNOMED Code(s): 24739143 ICD Code: I48.91 - UNSPECIFIED ATRIAL FIBRILLATION Status: Acute Current Visit: Yes (2) Leukocytosis SNOMED Code(s): 150085214, 029234364 ICD Code: D72.829 - ELEVATED WHITE BLOOD CELL COUNT, UNSPECIFIED Status: Acute Current Visit: Yes (3) Non-traumatic rhabdomyolysis SNOMED Code(s): 569497429 ICD Code: M62.82 - RHABDOMYOLYSIS Status: Acute Current Visit: Yes (4) ADE (acute kidney injury) SNOMED Code(s): 83697604, 98525715 ICD Code: N17.9 - ACUTE KIDNEY FAILURE, UNSPECIFIED Status: Acute Current Visit: Yes (5) Microscopic hematuria SNOMED Code(s): 097828925 ICD Code: R31.29 - OTHER MICROSCOPIC HEMATURIA Status: Acute Current Visit: Yes (6) HTN (hypertension) SNOMED Code(s): 01303949 ICD Code: I10 - ESSENTIAL (PRIMARY) HYPERTENSION Status: Acute Current Visit: Yes (7) Altered mental status SNOMED Code(s): 250604305 ICD Code: R41.82 - ALTERED MENTAL STATUS, UNSPECIFIED Status: Acute Current Visit: No Qualifiers: Altered mental status type: disorientation Qualified Code(s): R41.0 - Disorientation, unspecified (8) Seizure SNOMED Code(s): 07908573 ICD Code: R56.9 - UNSPECIFIED CONVULSIONS Status: Acute Current Visit: No Problem List Initiated/Reviewed/Updated: Yes Orders Last 24hrs: Active Orders 24 hr Category Date Time Status Admission Diagnosis [ADT] Routine ADT 01/04/21 14:15 Ordered Admission Status [Patient Status] [ADT] Routine ADT 01/04/21 14:15 Active Oxygen Therapy [RC] PRN Care 01/04/21 16:05 Ordered Peripheral IV Care [RC] . DIRECTED Care 01/04/21 16:06 Ordered Up With Assistance [RC] ASDIRECTED Care 01/04/21 16:04 Ordered VTE/DVT Education [RC] PER UNIT ROUTINE Care 01/04/21 16:05 Ordered Vital Signs [RC] Q4H Care 01/04/21 16:05 Ordered Regular Diet [DIET] Diet 01/04/21 Dinner Ordered BASIC METABOLIC PANEL,BMP [CHEM] AM Lab 01/05/21 05:15 Ordered CBC WITH AUTO DIFF [HEME] AM Lab 01/05/21 05:15 Ordered CPK [CREATINE KINASE,CK] [CHEM] AM Lab 01/05/21 05:11 Ordered LEVETIRACETAM, S [REF] Routine Lab 01/04/21 10:10 Received Acetaminophen [TylenoL] Med 01/04/21 16:04 Ordered 650 mg PO Q4H PRN Cholecalciferol (Vitamin D3) [Vitamin D3] Med 01/05/21 09:00 Ordered 1,000 unit PO DAILY Docusate Sodium [Colace] Med 01/04/21 16:04 Ordered 100 mg PO BID PRN Heparin Sodium Med 01/04/21 22:00 Ordered 5,000 units SUBCUT Q8HR Latanoprost [Xalatan 0.005% Ophth Soln] Med 01/05/21 09:00 Ordered 1 drop EYERT DAILY Ondansetron [Zofran ODT] Med 01/04/21 16:04 Ordered 4 mg PO Q6H PRN Sodium Chloride 0.9% [Normal Saline] 1,000 ml Med 01/04/21 16:00 Ordered IV ASDIRECTED Sodium Chloride 0.9% [Normal Saline] 500 ml Med 01/04/21 09:45 Active IV .BOLUS Sodium Chloride 0.9% [Saline Flush] Med 01/04/21 16:04 Ordered 10 ml FLUSH ASDIRECTED PRN Tamsulosin [Flomax] Med 01/05/21 09:00 Ordered 0.4 mg PO DAILY Temazepam [Restoril] Med 01/04/21 16:04 Ordered 15 mg PO BEDTIME PRN amLODIPine [Norvasc] Med 01/05/21 09:00 Ordered 10 mg PO DAILY levETIRAcetam [Keppra] Med 01/04/21 21:00 Ordered 500 mg PO BID Peripheral IV Insertion Adult [OM.PC] Routine Oth 01/04/21 16:04 Ordered Seizure Precautions [OM.PC] Routine Oth 01/04/21 16:01 Ordered Resuscitation Status Routine Resus Stat 01/04/21 16:04 Ordered Medication Orders Sodium Chloride (Normal Saline) 500 mls @ 999 mls/hr IV .[facility] Last Admin: 01/04/21 10:19 Dose: 999 mls/hr Documented by: YARED Sodium Chloride (Normal Saline) 1,000 mls @ 75 mls/hr IV ASDIRECTED RENETTA Assessment/Plan Comment:: Breakthrough seizure The patient was off Keppra when seizure happened The patient is postictal improving Received Keppra loading dose in the emergency room I will resume home dose of oral Keppra Seizure pads for protection Nontraumatic rhabdomyolysis Elevated CPKs likely secondary to seizure We will hydrate well Recheck CPK in the morning Acute renal failure We will hydrate well Recheck electrolytes and renal function in the morning Leukocytosis Likely reactive Hold antibiotics Recheck CBC in the morning Monitor for fever or signs of infection Microscopic hematuria Likely traumatic Recheck in a few days Monitor for gross hematuria Hypertension Treat with Norvasc History of atrial fibrillation, paroxysmal Not on anticoagulation since the prior MRI in July showed "microhemorrhages" DVT prophylaxis with subcutaneous heparin
[2021-01-04] MEDS: Sodium Chloride 0.9% 1,000 ML IV SCH (16:36)
[2021-01-04] MEDS: levETIRAcetam 500 MG Tab PO SCH (20:04)
[2021-01-04] MEDS: Heparin Sodium 5,000 Units/ML Vial SUBCUT SCH (21:42)
[2021-01-05] MEDS: Heparin Sodium 5,000 Units/ML Vial SUBCUT SCH (05:30)
[2021-01-05] MEDS: Sodium Chloride 0.9% 1,000 ML IV SCH (05:54)
[2021-01-05 07:01] LABS: ANION GAP 14.9 mEq/L (7-13)
[2021-01-05] MEDS: levETIRAcetam 500 MG Tab PO SCH (08:43)
[2021-01-05] MEDS ORDERED: Cholecalciferol (Vitamin D3) 25 MCG Tab PO SCH (09:00)
[2021-01-05] MEDS ORDERED: amLODIPine 5 MG Tab PO SCH (09:00)
[2021-01-05] MEDS ORDERED: Latanoprost 0.005% Ophth Soln 2.5 ML Bottle EYEBOTH SCH (09:00)
[2021-01-05] MEDS ORDERED: Tamsulosin 0.4 MG Cap.ER PO SCH (09:00)
--- NOTE | 2021-01-05 10:29 | PCM.DCSUM1 ---
Discharge Summary - Hospital Course Free Text/Narrative:: Mr. Burroughs is an 80-year-old with history of seizures who was brought the the hospital after being found by staff laying on the floor of his apartment. It is unclear what happened but highly thought that he had a grand mal seizure. He apparently ran out of his Keppra prescription three days prior to the onset of his seizure. He normally gets his medications mailed to his apartment at the assisted care living facility where he resides but for some reason this did not happen in the usual timely fashion. He was admitted to the hospital under observation status and started on his home Keppra dose. He was monitored overnight and had no seizures noted. He was discharged home back to his residence the following day in a stable condition. Discharge instructions: Activity as tolerated Diet is regular Discharge time is 35 minutes Physical exam: General: Patient awake, alert and oriented x3. Pleasant elderly male CVS: S1-S2 appreciated, regular rate and rhythm. No murmurs, rubs or gallops Lungs: Clear lateral to auscultation bilaterally. No wheezes Abdomen: Soft, nontender, bowel sounds are present Extremities: There is no clubbing trace edema. Peripheral 2+ Neuro: Patient moves all extremities. Sensations intact bilaterally, gait is n ormal Diagnosis: Stroke: No - Discharge Data Discharge Date: 01/05/21 Discharge Disposition: DC/Tfer to [facility] Condition: Fair - Referral to Home Health Primary Care Physician: PCP None - Discharge Diagnosis/Problem(s) (1) New onset a-fib SNOMED Code(s): 20360393 ICD Code: I48.91 - UNSPECIFIED ATRIAL FIBRILLATION Status: Chronic Current Visit: No (2) Seizure SNOMED Code(s): 75660614 ICD Code: R56.9 - UNSPECIFIED CONVULSIONS Status: Chronic Current Visit: Yes (3) ADE (acute kidney injury) SNOMED Code(s): 80269335, 06283951 ICD Code: N17.9 - ACUTE KIDNEY FAILURE, UNSPECIFIED Status: Acute Current Visit: Yes - Patient Instructions Diet: Regular Diet as Tolerated Diet, Other: Regular Activity: As Tolerated Showering/Bathing: May Shower Other/Special Instructions: Notify PCP of any breakthrough seizures. - Discharge Plan *PRESCRIPTION DRUG MONITORING PROGRAM REVIEWED*: Not Applicable *COPY OF PRESCRIPTION DRUG MONITORING REPORT IN PATIENT JESSICA: Not Applicable Prescriptions/Med Rec: Metoprolol Tartrate 25 mg PO BID 30 Days #60 tablet Home Medications: Home Meds Cholecalciferol (Vitamin D3) [Vitamin D3] 1,000 unit PO DAILY 08/01/20 [History] Fluticasone Propionate [Flonase] 1 spray NASBOTH DAILY 01/04/21 [History] Latanoprost [Xalatan 0.005% Ophth Soln] 1 drop EYEBOTH BEDTIME 01/04/21 [History] Tamsulosin [Flomax] 0.4 mg PO ASDIRECTED 01/04/21 [History] levETIRAcetam [Keppra] 500 mg PO BID 01/04/21 [History] Acetaminophen [Tylenol] 650 mg PO Q4H PRN tablet 01/05/21 [Rx] Metoprolol Tartrate 25 mg PO BID 30 Days #60 tablet 01/05/21 [Rx] Patient Handouts: Seizure, Adult, [id number] Referrals: Rose Sandhu DEBURRER [Ordering Only Provider] - - Discharge Summary/Plan Comment DC Time >30 min.: Yes Total # of Minutes for Discharge Time: 35 mins - Patient Data Vitals - Most Recent: Last Vital Signs Temp 98.8 F 01/05/21 07:27 Pulse 78 01/05/21 07:27 Resp 22 H 01/05/21 07:27 BP 138/85 01/05/21 08:43 Pulse Ox 95 01/05/21 07:27 Weight - Most Recent: 174 lb I&O - Last 24 hours: Intake & Output 01/04/21 01/05/21 01/05/21 22:59 06:59 14:59 Intake Total 280 Output Total 250 275 Balance -250 -275 280 Lab Results - Last 24 hrs: Laboratory Results - last 24 hr 01/04/21 01/04/21 01/04/21 Range/Units 10:10 10:10 11:57 WBC 16.5 H (5.0-10.0) 10^3/uL RBC 5.07 (4.6-6.2) 10^6/uL Hgb 15.1 (14.0-18.0) g/dL Hct 43.6 (40.0-54.0) % MCV 86.0 D (80-100) fL MCH 29.8 (27.0-34.0) pg MCHC 34.6 (33.0-35.0) g/dL Plt Count 214 (150-450) 10^3/uL Neut % (Auto) 89.1 H (42.2-75.2) % Lymph % (Auto) 5.6 L (20.5-50.1) % [place] % (Auto) 5.1 (2-8) % Eos % (Auto) 0.1 L (1.0-3.0) % Baso % (Auto) 0.1 (0.0-1.0) % Sodium 140 (136-145) mmol/L Potassium 4.3 (3.5-5.1) mmol/L Chloride 104 (98-107) mmol/L Carbon Dioxide 19 L (21-32) mmol/L Anion Gap 21.3 H (7-13) mEq/L BUN 21 H (7-18) mg/dL Creatinine 1.80 H (0.70-1.30) mg/dL Est Cr Clr Drug Dosing 36.55 mL/min Estimated GFR (MDRD) 36 BUN/Creatinine Ratio 11.7 (No establ ref range) Glucose 153 H (70-99) mg/dL Calcium 8.6 (8.5-10.1) mg/dL Total Bilirubin 0.4 (0.2-1.0) mg/dL AST 32 (15-37) U/L ALT 47 (16-63) U/L Alkaline Phosphatase 86 (46-116) U/L Lactate Dehydrogenase 215 (85-227) U/L Creatine Kinase 567 H (39-308) U/L Troponin I High Sens 9 (<=76) pg/mL Total Protein 6.6 (6.4-8.2) g/dL Albumin 3.4 (3.4-5.0) g/dL Globulin 3.2 Albumin/Globulin Ratio 1.1 Urine Color Dark yellow (YELLOW) Urine Appearance Clear (CLEAR) Urine pH 5.5 (5.0-9.0) Ur Specific [place] >= 1.030 (1.005-1.030) Urine Protein 100 H (NEGATIVE) Urine Glucose (UA) Negative (NEGATIVE) Urine Ketones Negative (NEGATIVE) Urine Occult Blood Large H (NEGATIVE) Urine Nitrite Negative (NEGATIVE) Urine Bilirubin Negative (NEGATIVE) Urine Urobilinogen 0.2 (0.2-1.0) mg/dL Ur Leukocyte Esterase Negative (NEGATIVE) Urine RBC 10-20 H (0-5) /HPF Urine WBC Not seen (0-5/HPF) /HPF Ur Epithelial Cells Rare (NOT SEEN) /HPF Amorphous Sediment Few (NOT SEEN) /HPF Urine Bacteria Rare (0-FEW/HPF) /HPF Urine Opiates Screen (NEGATIVE) Ur Oxycodone Screen (NEGATIVE) Urine Methadone Screen (NEGATIVE) Ur Barbiturates Screen (NEGATIVE) U Tricyclic Antidepress (NEGATIVE) Ur Phencyclidine Scrn (NEGATIVE) Ur Amphetamine Screen (NEGATIVE) U Methamphetamines Scrn (NEGATIVE) Urine MDMA Screen (NEGATIVE) U Benzodiazepines Scrn (NEGATIVE) Urine Cocaine Screen (NEGATIVE) U Marijuana (THC) Screen (NEGATIVE) Ethyl Alcohol < 3 (0) mg/dL SARS CoV-2 RNA Rapid JERMAIN (NEGATIVE) 01/04/21 01/04/21 01/05/21 Range/Units 11:59 15:59 06:06 WBC 11.7 H (5.0-10.0) 10^3/uL RBC 4.54 L (4.6-6.2) 10^6/uL Hgb 13.5 L D (14.0-18.0) g/dL Hct 39.3 L (40.0-54.0) % MCV 86.6 (80-100) fL MCH 29.7 (27.0-34.0) pg MCHC 34.4 (33.0-35.0) g/dL Plt Count 214 (150-450) 10^3/uL Neut % (Auto) 81.8 H (42.2-75.2) % Lymph % (Auto) 12.8 L (20.5-50.1) % [place] % (Auto) 5.2 (2-8) % Eos % (Auto) 0.1 L (1.0-3.0) % Baso % (Auto) 0.1 (0.0-1.0) % Sodium (136-145) mmol/L Potassium (3.5-5.1) mmol/L Chloride (98-107) mmol/L Carbon Dioxide (21-32) mmol/L Anion Gap (7-13) mEq/L BUN (7-18) mg/dL Creatinine (0.70-1.30) mg/dL Est Cr Clr Drug Dosing mL/min Estimated GFR (MDRD) BUN/Creatinine Ratio (No establ ref range) Glucose (70-99) mg/dL Calcium (8.5-10.1) mg/dL Total Bilirubin (0.2-1.0) mg/dL AST (15-37) U/L ALT (16-63) U/L Alkaline Phosphatase (46-116) U/L Lactate Dehydrogenase (85-227) U/L Creatine Kinase (39-308) U/L Troponin I High Sens (<=76) pg/mL Total Protein (6.4-8.2) g/dL Albumin (3.4-5.0) g/dL Globulin Albumin/Globulin Ratio Urine Color (YELLOW) Urine Appearance (CLEAR) Urine pH (5.0-9.0) Ur Specific [place] (1.005-1.030) Urine Protein (NEGATIVE) Urine Glucose (UA) (NEGATIVE) Urine Ketones (NEGATIVE) Urine Occult Blood (NEGATIVE) Urine Nitrite (NEGATIVE) Urine Bilirubin (NEGATIVE) Urine Urobilinogen (0.2-1.0) mg/dL Ur Leukocyte Esterase (NEGATIVE) Urine RBC (0-5) /HPF Urine WBC (0-5/HPF) /HPF Ur Epithelial Cells (NOT SEEN) /HPF Amorphous Sediment (NOT SEEN) /HPF Urine Bacteria (0-FEW/HPF) /HPF Urine Opiates Screen Negative (NEGATIVE) Ur Oxycodone Screen Negative (NEGATIVE) Urine Methadone Screen Negative (NEGATIVE) Ur Barbiturates Screen Negative (NEGATIVE) U Tricyclic Antidepress Negative (NEGATIVE) Ur Phencyclidine Scrn Negative (NEGATIVE) Ur Amphetamine Screen Negative (NEGATIVE) U Methamphetamines Scrn Negative (NEGATIVE) Urine MDMA Screen Negative (NEGATIVE) U Benzodiazepines Scrn Negative (NEGATIVE) Urine Cocaine Screen Negative (NEGATIVE) U Marijuana (THC) Screen Negative (NEGATIVE) Ethyl Alcohol (0) mg/dL SARS CoV-2 RNA Rapid JERMAIN Negative (NEGATIVE) 01/05/21 Range/Units 06:06 WBC (5.0-10.0) 10^3/uL RBC (4.6-6.2) 10^6/uL Hgb (14.0-18.0) g/dL Hct (40.0-54.0) % MCV (80-100) fL MCH (27.0-34.0) pg MCHC (33.0-35.0) g/dL Plt Count (150-450) 10^3/uL Neut % (Auto) (42.2-75.2) % Lymph % (Auto) (20.5-50.1) % [place] % (Auto) (2-8) % Eos % (Auto) (1.0-3.0) % Baso % (Auto) (0.0-1.0) % Sodium 141 (136-145) mmol/L Potassium 3.9 (3.5-5.1) mmol/L Chloride 105 (98-107) mmol/L Carbon Dioxide 25 (21-32) mmol/L Anion Gap 14.9 H (7-13) mEq/L BUN 17 (7-18) mg/dL Creatinine 1.27 (0.70-1.30) mg/dL Est Cr Clr Drug Dosing 50.92 mL/min Estimated GFR (MDRD) 54 BUN/Creatinine Ratio (No establ ref range) Glucose 105 H (70-99) mg/dL Calcium 8.2 L (8.5-10.1) mg/dL Total Bilirubin (0.2-1.0) mg/dL AST (15-37) U/L ALT (16-63) U/L Alkaline Phosphatase (46-116) U/L Lactate Dehydrogenase (85-227) U/L Creatine Kinase 1506 H (39-308) U/L Troponin I High Sens (<=76) pg/mL Total Protein (6.4-8.2) g/dL Albumin (3.4-5.0) g/dL Globulin Albumin/Globulin Ratio Urine Color (YELLOW) Urine Appearance (CLEAR) Urine pH (5.0-9.0) Ur Specific [place] (1.005-1.030) Urine Protein (NEGATIVE) Urine Glucose (UA) (NEGATIVE) Urine Ketones (NEGATIVE) Urine Occult Blood (NEGATIVE) Urine Nitrite (NEGATIVE) Urine Bilirubin (NEGATIVE) Urine Urobilinogen (0.2-1.0) mg/dL Ur Leukocyte Esterase (NEGATIVE) Urine RBC (0-5) /HPF Urine WBC (0-5/HPF) /HPF Ur Epithelial Cells (NOT SEEN) /HPF Amorphous Sediment (NOT SEEN) /HPF Urine Bacteria (0-FEW/HPF) /HPF Urine Opiates Screen (NEGATIVE) Ur Oxycodone Screen (NEGATIVE) Urine Methadone Screen (NEGATIVE) Ur Barbiturates Screen (NEGATIVE) U Tricyclic Antidepress (NEGATIVE) Ur Phencyclidine Scrn (NEGATIVE) Ur Amphetamine Screen (NEGATIVE) U Methamphetamines Scrn (NEGATIVE) Urine MDMA Screen (NEGATIVE) U Benzodiazepines Scrn (NEGATIVE) Urine Cocaine Screen (NEGATIVE) U Marijuana (THC) Screen (NEGATIVE) Ethyl Alcohol (0) mg/dL SARS CoV-2 RNA Rapid JERMAIN (NEGATIVE) Med Orders - Current: Current Medications Acetaminophen (Acetaminophen 325 Mg Tab) 650 mg PO Q4H PRN PRN Reason: Pain (Mild 1-3)/fever Amlodipine Besylate (Amlodipine 5 Mg Tab) 10 mg PO DAILY [facility] Last Admin: 01/05/21 08:43 Dose: 10 mg Documented by: Cholecalciferol (Cholecalciferol (Vitamin D3) 25 Mcg Tab) 25 mcg PO DAILY [facility] Last Admin: 01/05/21 08:43 Dose: 25 mcg Documented by: Docusate Sodium (Docusate Sodium 100 Mg Cap) 100 mg PO BID PRN PRN Reason: Constipation Heparin Sodium (Porcine) (Heparin Sodium 5,000 Units/Ml Vial) 5,000 units SUBCUT Q8HR [facility] Last Admin: 01/05/21 05:30 Dose: 5,000 units Documented by: Sodium Chloride (Normal Saline) 500 mls @ 999 mls/hr IV .BOLUS [facility] Last Admin: 01/04/21 10:19 Dose: 999 mls/hr Documented by: Latanoprost (Latanoprost 0.005% Ophth Soln 2.5 Ml Bottle) 0 ml EYEBOTH DAILY [facility] Levetiracetam (Levetiracetam 500 Mg Tab) 500 mg PO BID [facility] Last Admin: 01/05/21 08:43 Dose: 500 mg Documented by: Ondansetron HCl (Ondansetron 4 Mg Tab.Dis) 4 mg PO Q6H PRN PRN Reason: nausea, able to take PO Sodium Chloride (Sodium Chloride 0.9% 10 Ml Syringe) 10 ml FLUSH ASDIRECTED PRN PRN Reason: Keep Vein Open Tamsulosin HCl (Tamsulosin 0.4 Mg Cap.Er) 0.4 mg PO DAILY [facility] Last Admin: 01/05/21 08:43 Dose: 0.4 mg Documented by: Temazepam (Temazepam 15 Mg Cap) 15 mg PO BEDTIME PRN PRN Reason: Sleep Discontinued Medications Levetiracetam 1,500 mg/ Premix 300 mls @ 1,200 mls/hr IV ONETIME ONE Stop: 01/04/21 09:46 Last Admin: 01/04/21 10:18 Dose: 1,200 mls/hr Documented by: Sodium Chloride (Normal Saline) 1,000 mls @ 75 mls/hr IV ASDIRECTED [facility] Last Admin: 01/05/21 05:54 Dose: 75 mls/hr Documented by:
--- NOTE | 2021-01-06 11:05 | PCM.PRNOTE ---
- Free Text/Narrative Note: EKG done on 01/05 21 shows Afib with a ventricular rate of 92 bpm. There is a left axis deviation and some non specific T wave changes in the inferior leads II, III and aVf. QRS interval is 90 msec. Compared to the EKG done on 01/03/21, the ventricular rate is now under 100bpm.
== END 2021-01-05 11:05 | disposition home or self-care (01) ==
LOC: DL.ED 09:45 → INTOOBSV 14:33 → DL.MS 14:33 → UNDOADMIN 14:33 → UNDODISIN 01-05 10:45
PROVIDERS: ADMIT Internal Medicine; ATTEND Hospitalist
DX: G40.909 Epilepsy, unspecified, not intractable, without status epilepticus (principal); G40.409 Other generalized epilepsy and epileptic syndromes, not intractable, without status epilepticus; N17.9 Acute kidney failure, unspecified; I48.20 Chronic atrial fibrillation, unspecified; M62.82 Rhabdomyolysis; Z20.822 Contact with and (suspected) exposure to COVID-19; I10 Essential (primary) hypertension; D72.829 Elevated white blood cell count, unspecified; R31.29 Other microscopic hematuria; R41.0 Disorientation, unspecified; Z79.899 Other long term (current) drug therapy
CPT/HCPCS: 36415; 70450; 72125; 80048; 80053; 80177; 80305-QW; 80307; 81001; 82550; 82947; 83615; 84484; 85025; 93005; 96365; 96372; 99285-25; A9270-GY; G0378; J1644; J1953; J7030; J7040; U0002

== ENCOUNTER 2021-04-29 16:35 | Observation (INO) | payer MEDICARE ==
[2021-04-29] MEDS ORDERED: Sodium Chloride 0.9% 10 ML Syringe FLUSH PRN (16:39)
[2021-04-29] MEDS ORDERED: levETIRAcetam in NaCl (iso-os) 1,500 MG in Premix Bag 1 BAG IV ONE ×2 (16:40)
[2021-04-29 17:42] LABS: ANION GAP 17.8 mEq/L (7-13); CHLORIDE,CL 102 mmol/L (98-107); SODIUM,NA 138 mmol/L (136-145)
[2021-04-29 18:04] LABS: CORONAVIRUS COVID-19 NAA NEGATIVE (NEGATIVE)
[2021-04-29] MEDS ORDERED: LORazepam 2 MG/ML SDV IVPUSH ONE ×2 (18:21→18:55)
[2021-04-29 19:47] LABS: AMPHETAMINES,URINE NEGATIVE (NEGATIVE); BARBITURATES,URINE NEGATIVE (NEGATIVE); BENZODIAZEPINE,URINE NEGATIVE (NEGATIVE); MDMA (ECSTASY), URINE NEGATIVE (NEGATIVE); METHADONE,URINE NEGATIVE (NEGATIVE); METHAMPHETAMINES,URINE NEGATIVE (NEGATIVE); OPIATES,URINE NEGATIVE (NEGATIVE); OXYCODONE,URINE NEGATIVE (NEGATIVE); PHENCYCLIDINE,URINE NEGATIVE (NEGATIVE); TCA,URINE NEGATIVE (NEGATIVE)
[2021-04-29] MEDS ORDERED: Polyethylene Glycol 3350 Powder 17 GM Packet PO PRN (20:00)
[2021-04-29] MEDS: Enoxaparin 40 MG/0.4 ML Syringe SUBCUT SCH (20:45)
[2021-04-29] MEDS ORDERED: Magnesium Hydroxide 400 MG/5 ML Susp 30 ML Cup PO PRN (21:43)
[2021-04-30 06:51] LABS: ANION GAP 14.2 mEq/L (7-13)
[2021-04-30] MEDS: Cholecalciferol (Vitamin D3) 25 MCG Tab PO SCH (08:11)
[2021-04-30] MEDS: levETIRAcetam 500 MG Tab PO SCH ×2 (08:11→20:31)
[2021-04-30] MEDS: Metoprolol Tartrate 25 MG Tab PO SCH ×2 (08:11→20:31)
[2021-04-30] MEDS: Nystatin Topical Powder 30 GM Bottle TOP SCH (08:12)
[2021-04-30] MEDS ORDERED: Acetaminophen 325 MG Tab PO PRN (12:45)
[2021-04-30] MEDS: Enoxaparin 40 MG/0.4 ML Syringe SUBCUT SCH (20:29)
[2021-04-30] MEDS: Aspirin 81 MG Tab.Chew PO SCH (20:30)
[2021-04-30] MEDS: Tamsulosin 0.4 MG Cap.ER PO SCH (20:30)
[2021-04-30] MEDS: Latanoprost 0.005% Ophth Soln 2.5 ML Bottle EYEBOTH SCH (20:32)
[2021-04-30] MEDS ORDERED: Aspirin 325 MG Tab PO SCH (21:00)
[2021-05-01] MEDS ORDERED: Metoprolol Tartrate 50 MG Tab PO ONE (08:14)
[2021-05-01] MEDS: Cholecalciferol (Vitamin D3) 25 MCG Tab PO SCH (08:45)
[2021-05-01] MEDS: levETIRAcetam 500 MG Tab PO SCH ×2 (08:45→22:21)
[2021-05-01] MEDS: Nystatin Topical Powder 30 GM Bottle TOP SCH (08:48)
[2021-05-01] MEDS ORDERED: cloNIDine 0.1 MG Tab PO ONE (16:40)
[2021-05-01] MEDS ORDERED: cloNIDine 0.1 MG Tab PO PRN (18:06)
[2021-05-01] MEDS: hydrALAZINE 25 MG Tab PO SCH ×2 (18:28→22:20)
[2021-05-01] MEDS: Enoxaparin 40 MG/0.4 ML Syringe SUBCUT SCH (20:00)
[2021-05-01] MEDS: Aspirin 81 MG Tab.Chew PO SCH (22:19)
[2021-05-01] MEDS: Metoprolol Tartrate 50 MG Tab PO SCH (22:20)
[2021-05-01] MEDS: Tamsulosin 0.4 MG Cap.ER PO SCH (22:21)
[2021-05-01] MEDS: Latanoprost 0.005% Ophth Soln 2.5 ML Bottle EYEBOTH SCH (22:21)
[2021-05-02] MEDS: Metoprolol Tartrate 50 MG Tab PO SCH ×2 (09:57→20:29)
[2021-05-02] MEDS: levETIRAcetam 500 MG Tab PO SCH ×2 (09:57→20:26)
[2021-05-02] MEDS: hydrALAZINE 25 MG Tab PO SCH ×3 (09:58→20:26)
[2021-05-02] MEDS: Cholecalciferol (Vitamin D3) 25 MCG Tab PO SCH (09:58)
[2021-05-02] MEDS: Nystatin Topical Powder 30 GM Bottle TOP SCH (10:00)
[2021-05-02] MEDS: Enoxaparin 40 MG/0.4 ML Syringe SUBCUT SCH (20:20)
[2021-05-02] MEDS: Aspirin 81 MG Tab.Chew PO SCH (20:26)
[2021-05-02] MEDS: Tamsulosin 0.4 MG Cap.ER PO SCH (20:26)
[2021-05-02] MEDS: Latanoprost 0.005% Ophth Soln 2.5 ML Bottle EYEBOTH SCH (20:32)
[2021-05-03 07:06] LABS: ANION GAP 13.8 mEq/L (7-13); CHLORIDE,CL 103 mmol/L (98-107); SODIUM,NA 139 mmol/L (136-145)
[2021-05-03] MEDS: Metoprolol Tartrate 50 MG Tab PO SCH (08:34)
[2021-05-03] MEDS: hydrALAZINE 25 MG Tab PO SCH (08:35)
[2021-05-03] MEDS: Cholecalciferol (Vitamin D3) 25 MCG Tab PO SCH (08:35)
[2021-05-03] MEDS: levETIRAcetam 500 MG Tab PO SCH (08:35)
== END 2021-05-03 12:00 | disposition home or self-care (01) ==
LOC: DL.ED 16:35 → DL.MS 18:22
PROVIDERS: ADMIT Internal Medicine; ATTEND Internal Medicine Nephrology
DX: G40.409 Other generalized epilepsy and epileptic syndromes, not intractable, without status epilepticus (principal); I48.91 Unspecified atrial fibrillation; I10 Essential (primary) hypertension; N40.0 Benign prostatic hyperplasia without lower urinary tract symptoms; H40.9 Unspecified glaucoma; I25.10 Atherosclerotic heart disease of native coronary artery without angina pectoris; Z20.822 Contact with and (suspected) exposure to COVID-19; Z91.018 Allergy to other foods; Z79.82 Long term (current) use of aspirin; Z79.899 Other long term (current) drug therapy
CPT/HCPCS: 0240U; 36415; 70450; 71045; 80048; 80053; 80177; 80305; 80307; 81001; 81003; 82550; 82947; 85025; 85027; 96365; 96372; 96375; 96376; 99285; A9270; G0378; J1650; J1953; J2060; 93010; 99217; 99220; 99225

== ENCOUNTER 2023-03-13 11:15 | Emergency (ER) | payer MEDICARE ==
[2023-03-13] MEDS ORDERED: levETIRAcetam in NaCl (iso-os) 1,500 MG in Premix Bag 1 BAG IV ONE ×2 (11:21)
[2023-03-13 11:40] LABS: BASOPHILS PERCENT AUTO 0.3 % (0.0-1.0); EOSINOPHILS PERCENT AUTO 1.8 % (1.0-3.0); HEMATOCRIT 43.2 % (40.0-54.0); HEMOGLOBIN 14.4 g/dL (14.0-18.0); LYMPHOCYTES PERCENT AUTO 23.1 % (20.5-50.1); MEAN CORPUSCULAR HEMOGLOBIN 29.9 pg (27.0-34.0); MEAN CORPUSCULAR HGB CONC 33.3 g/dL (33.0-35.0); MEAN CORPUSCULAR VOLUME 89.6 fL (80-100); MONOCYTES PERCENT AUTO 8.2 % (2-8); NEUTROPHILS PERCENT AUTO 66.6 % (42.2-75.2); PLATELET COUNT,PLT 191 10^3/uL (150-450); RED BLOOD CELL COUNT 4.82 10^6/uL (4.6-6.2); WHITE BLOOD CELL COUNT,WBC 10.3 10^3/uL (5.0-10.0)
[2023-03-13 11:45] LABS: APPEARANCE,URINE CLEAR (CLEAR); BILIRUBIN,URINE NEGATIVE (NEGATIVE); COLOR,URINE YELLOW (YELLOW); GLUCOSE,URINE NEGATIVE (NEGATIVE); KETONES,URINE NEGATIVE (NEGATIVE); LEUKOCYTE ESTERASE,URINE NEGATIVE (NEGATIVE); NITRITE,URINE NEGATIVE (NEGATIVE); OCCULT BLOOD,URINE NEGATIVE (NEGATIVE); PROTEIN,URINE TRACE (NEGATIVE); UROBILINOGEN,URINE 0.2 mg/dL (0.2-1.0)
[2023-03-13 11:54] LABS: AMORPHOUS SEDIMENT,URINE RARE /HPF (NOT SEEN); BACTERIA,URINE RARE /HPF (0-FEW/HPF); EPITHELIAL CELLS,URINE FEW /HPF (NOT SEEN); MDMA (ECSTASY), URINE NEGATIVE (NEGATIVE); METHAMPHETAMINES,URINE NEGATIVE (NEGATIVE); MUCUS,URINE RARE /LPF (NOT SEEN); RBC,URINE 0-5 /HPF (0-5); WBC,URINE 0-5 /HPF (0-5/HPF)
[2023-03-13 11:55] LABS: AMPHETAMINES,URINE NEGATIVE (NEGATIVE); BARBITURATES,URINE NEGATIVE (NEGATIVE); BENZODIAZEPINE,URINE NEGATIVE (NEGATIVE); METHADONE,URINE POSITIVE (NEGATIVE); OPIATES,URINE NEGATIVE (NEGATIVE); OXYCODONE,URINE NEGATIVE (NEGATIVE); PHENCYCLIDINE,URINE NEGATIVE (NEGATIVE); TCA,URINE NEGATIVE (NEGATIVE)
[2023-03-13 12:00] LABS: PTT,PARTIAL THROMBOPLSTIN TIME 22.1 SEC (22.0-34.0)
[2023-03-13 12:04] LABS: ALANINE AMINOTRANSFERASE,ALT 21 U/L (16-63); ALBUMIN 3.3 g/dL (3.4-5.0); ALKALINE PHOSPHATASE 71 U/L (46-116); ANION GAP 11.9 mEq/L (7-13); ASPARTATE AMNIOTRANSFERASE,AST 15 U/L (15-37); BILIRUBIN TOTAL 0.5 mg/dL (0.2-1.0); BLOOD UREA NITROGEN,BUN 23 mg/dL (7-18); BUN/CREATININE RATIO 17.6 (No establ ref range); CALCIUM 8.3 mg/dL (8.5-10.1); CARBON DIOXIDE,CO2 27 mmol/L (21-32); CHLORIDE,CL 103 mmol/L (98-107); CREATININE 1.31 mg/dL (0.70-1.30); GLUCOSE RANDOM 76 mg/dL (70-99); POTASSIUM,K 3.9 mmol/L (3.5-5.1); PROTEIN TOTAL,TP 6.5 g/dL (6.4-8.2); SODIUM,NA 138 mmol/L (136-145)
[2023-03-13 12:05] LABS: A/G RATIO 1.03; ESTIMATED GFR 54 mL/min (>=60)
== END 2023-03-13 13:22 ==
LOC: DL.ED 11:15
DX: Z02.89 Encounter for other administrative examinations (principal); R41.0 Disorientation, unspecified; I10 Essential (primary) hypertension; Z79.82 Long term (current) use of aspirin; Z79.899 Other long term (current) drug therapy; Z91.018 Allergy to other foods
CPT/HCPCS: 36415; 70450; 71045; 80053; 80305-QW; 81001; 82140; 82947; 83605; 83735; 84145; 84484; 85025; 85610; 85730; 93005; 93010; 96365; 99285; 99285-25; J1953

== ENCOUNTER 2024-05-10 12:41 | Emergency (ER) | payer MEDICARE ==
[~2024-05-10 12:41] MED LIST changes: +Sodium Chloride 0.9% 10 ML Syringe FLUSH PRN; -Sodium Chloride 0.9% 500 ML IV SCH; -levETIRAcetam in NaCl (iso-os) 1,500 MG in Premix Bag 1 BAG IV ONE
[2024-05-10 12:42] LABS: BASOPHILS PERCENT AUTO 0.1 % (0.0-1.0); HEMOGLOBIN 15.4 g/dL (14.0-18.0); LYMPHOCYTES PERCENT AUTO 7.7 % (20.5-50.1); MEAN CORPUSCULAR HEMOGLOBIN 30.1 pg (27.0-34.0); MEAN CORPUSCULAR HGB CONC 34.2 g/dL (33.0-35.0); MEAN CORPUSCULAR VOLUME 88.1 fL (80-100); MONOCYTES PERCENT AUTO 3.7 % (2-8); NEUTROPHILS PERCENT AUTO 88.5 % (42.2-75.2); PLATELET COUNT,PLT 200 10^3/uL (150-450); RED BLOOD CELL COUNT 5.11 10^6/uL (4.6-6.2); WHITE BLOOD CELL COUNT,WBC 16.3 10^3/uL (5.0-10.0)
[2024-05-10 12:58] LABS: PROTHROMBIN TIME 10.7 SEC (9.0-12.0)
[2024-05-10 13:04] LABS: A/G RATIO 1.2; ALANINE AMINOTRANSFERASE,ALT 16 U/L (16-63); ALBUMIN 3.8 g/dL (3.4-5.0); ALKALINE PHOSPHATASE 128 U/L (46-116); ASPARTATE AMNIOTRANSFERASE,AST 20 U/L (15-37); BILIRUBIN TOTAL 0.7 mg/dL (0.2-1.0); BLOOD UREA NITROGEN,BUN 46 mg/dL (7-18); BUN/CREATININE RATIO 8.6 (No establ ref range); CALCIUM 9.5 mg/dL (8.5-10.1); CARBON DIOXIDE,CO2 24 mmol/L (21-32); CHLORIDE,CL 99 mmol/L (98-107); CREATININE 5.36 mg/dL (0.70-1.30); GLUCOSE RANDOM 156 mg/dL (70-99); MAGNESIUM 2.6 mg/dL (1.8-2.4); SODIUM,NA 137 mmol/L (136-145)
[2024-05-10 13:11] LABS: ESTIMATED GFR 10 mL/min (>=60)
[2024-05-10] MEDS: Ondansetron 4 MG/2 ML SDV IVPUSH ONE (13:15)
[2024-05-10] MEDS: Sodium Chloride 0.9% 500 ML IV ONE (13:17)
[2024-05-10] MEDS: Pantoprazole 40 MG Vial IVPUSH ONE (13:22)
[2024-05-10 14:35] LABS: APPEARANCE,URINE CLEAR (CLEAR); BILIRUBIN,URINE NEGATIVE (NEGATIVE); COLOR,URINE YELLOW (YELLOW); GLUCOSE,URINE NEGATIVE (NEGATIVE); KETONES,URINE TRACE (NEGATIVE); LEUKOCYTE ESTERASE,URINE NEGATIVE (NEGATIVE); NITRITE,URINE NEGATIVE (NEGATIVE); OCCULT BLOOD,URINE TRACE-INTACT (NEGATIVE); PROTEIN,URINE 30 (NEGATIVE); UROBILINOGEN,URINE 0.2 mg/dL (0.2-1.0)
[2024-05-10 15:27] LABS: BACTERIA,URINE RARE /HPF (0-FEW/HPF); EPITHELIAL CELLS,URINE FEW /HPF (NOT SEEN); HYALINE CASTS,URINE RARE; MUCUS,URINE FEW /LPF (NOT SEEN); WBC,URINE NOT SEEN /HPF (0-5/HPF)
[2024-05-10] MEDS: LORazepam 2 MG/ML SDV IVPUSH ONE (16:12)
[2024-05-10] MEDS: Azithromycin 500 MG in Sodium Chloride 0.9% 250 ML IV ONE (16:13)
[2024-05-10] MEDS: cefTRIAXone 1 GM Vial IVPUSH ONE (16:14)
[2024-05-10] MEDS: Sodium Chloride 0.9% 1,000 ML IV SCH (16:47)
== END 2024-05-10 17:21 ==
LOC: DL.ED 12:41
DX: K92.2 Gastrointestinal hemorrhage, unspecified (principal); N17.9 Acute kidney failure, unspecified; R33.9 Retention of urine, unspecified; I10 Essential (primary) hypertension; Z79.82 Long term (current) use of aspirin; Z79.899 Other long term (current) drug therapy; Z91.018 Allergy to other foods; Z91.09 Other allergy status, other than to drugs and biological substances
CPT/HCPCS: 36415; 51702; 70450; 74176; 80053; 81001; 82271; 82947; 83735; 84484; 85025; 85610; 86850; 86900; 86901; 87040; 93005; 93010; 96361; 96365; 96375; 99285; 99285-25; G0103; J0456; J0696; J2060; J2405; J2470; J7030; J7040; J7050

== ENCOUNTER 2024-07-28 14:28 | Inpatient (IN) | payer MEDICARE ==
[2024-07-28] MEDS ORDERED: Atropine 1% Ophth Soln 5 ML Bottle SL PRN (17:51)
[2024-07-28] MEDS: Scopalamine 1mg/3day Transdermal Patch TRDERM ONE (18:26)
[2024-07-28] MEDS: LORazepam 2 MG/ML SDV IVPUSH PRN (19:36)
[2024-07-28] MEDS: Morphine 2 MG/ML SYRINGE IVPUSH PRN (19:37)
[2024-07-29] MEDS ORDERED: Check SCOPOLAMINE Patch TRDERM SCH (21:00)
== END 2024-07-29 12:15 | disposition expired | DRG 951 ==
LOC: DL.MS 15:55
PROVIDERS: ADMIT Internal Medicine; ATTEND Internal Medicine
DX: Z51.5 Encounter for palliative care (principal); C61 Malignant neoplasm of prostate; Z66 Do not resuscitate; I10 Essential (primary) hypertension; I48.91 Unspecified atrial fibrillation; G40.909 Epilepsy, unspecified, not intractable, without status epilepticus; E55.9 Vitamin D deficiency, unspecified; N40.0 Benign prostatic hyperplasia without lower urinary tract symptoms; R00.1 Bradycardia, unspecified; R45.1 Restlessness and agitation; Z79.899 Other long term (current) drug therapy; Z87.81 Personal history of (healed) traumatic fracture
CPT/HCPCS: A9270-GY; J2060; J2270